=== PATIENT | male | born 1955 | race Caucasian/White ===

== ENCOUNTER 2018-12-07 13:19 | Emergency (ER) | payer BC, OTHER ==
[~2018-12-07] VITALS: Ht 167.6 cm; Wt 83.0 kg
[2018-12-07 13:23] VITALS: Ht 167.6 cm; Wt 83.0 kg
[2018-12-07 16:13] VITALS: BP 174/84; PULSE 75; RESP 18
--- NOTE | 2018-12-07 21:02 | ERD ---
ER Documentation Chief Complaint Chief Complaint BODY PAINS X 2 DAYS HPI 63yo male presents for body pain x2 days. He states that all his joints hurt. He rates the pain at 8/10 intermittently and states that he feels weak. He denies fever, chills, cough, CP, SOB, abd pain, nausea or vomiting. Patient was seen by PCP and was referred to ER for further workup. EKG was noted to be slightly abnormal. ROS All systems reviewed and are negative except as per history of present illness. Allergies Allergies: Coded Allergies: No Known Allergy (Unverified , 12/20/18) PMhx/Soc Medical and Surgical Hx: pt denies Medical Hx, pt denies Surgical Hx Hx Cardiac Disorders: Yes Hx Alcohol Use: No Hx Substance Use: No Hx Tobacco Use: Yes (6-7 cig qd) Smoking Status: Current every day smoker Physical Exam Vitals Vital Signs Date Temp Pulse Resp B/P (MAP) Pulse Ox O2 O2 Flow FiO2 Time Delivery Rate 12/07/18 97.5 75 18 174/84 98 Room Air 16:13 (114) 12/07/18 98.2 86 19 176/93 97 13:23 (120) Physical Exam Const: No acute distress Head: Atraumatic Eyes: Normal Conjunctiva ENT: Normal External Ears, Nose and Mouth. Neck: Full range of motion. No meningismus. Resp: Clear to auscultation bilaterally Cardio: Regular rate and rhythm, no murmurs, bilateral radial and dorsalis pedis pulses intact Abd: Soft, non tender, non distended. Normal bowel sounds Skin: No petechiae or rashes Back: No midline or flank tenderness Ext: No cyanosis, or edema, 5/5 muscle strength upper and lower extremities Neur: Awake and alert, sensation intact upper and lower extremities Psych: Normal Mood and Affect Results 24 hrs Laboratory Tests Test 12/07/18 14:53 White Blood Count 9.1 10^3/ul Red Blood Count 5.16 10^6/ul Hemoglobin 15.8 g/dl Hematocrit 49.4 % Mean Corpuscular Volume 95.7 fl Mean Corpuscular Hemoglobin 30.6 pg Mean Corpuscular Hemoglobin Concent 32.0 g/dl Red Cell Distribution Width 12.0 % Platelet Count 216 10^3/UL Mean Platelet Volume 10.7 fl Immature Granulocytes % 0.400 % Neutrophils % 61.7 % Lymphocytes % 25.7 % Monocytes % 6.2 % Eosinophils % 5.3 % Basophils % 0.7 % Nucleated Red Blood Cells % 0.0 /100WBC Immature Granulocytes # 0.040 10^3/ul Neutrophils # 5.6 10^3/ul Lymphocytes # 2.4 10^3/ul Monocytes # 0.6 10^3/ul Eosinophils # 0.5 10^3/ul Basophils # 0.1 10^3/ul Nucleated Red Blood Cells # 0.0 10^3/ul Sodium Level 143 mmol/L Potassium Level 4.4 mmol/L Chloride Level 106 mmol/L Carbon Dioxide Level 28 mmol/L Anion Gap 9 Blood Urea Nitrogen 21 mg/dl Creatinine 0.76 mg/dl Est Glomerular Filtrat Rate mL/min > 60 mL/min Glucose Level 101 mg/dl Calcium Level 9.6 mg/dl Total Bilirubin 0.3 mg/dl Direct Bilirubin 0.00 mg/dl Indirect Bilirubin 0.3 mg/dl Aspartate Amino Transf (AST/SGOT) 31 IU/L Alanine Aminotransferase (ALT/SGPT) 35 IU/L Alkaline Phosphatase 86 IU/L Total Protein 8.1 g/dl Albumin 4.8 g/dl Globulin 3.30 g/dl Albumin/Globulin Ratio 1.45 Procedures/MDM Medical Decision Making: Differential diagnosis includes but not limited to ACS, electrolyte disorder, dehydration. Patient appears well on physical exam. Patient had an EKG done with PCP which was noted subjectively to have slight ST abnormalities. Repeat EKG in ER showed NSR with no ST or T wave changes and patient did not c/o chest pain, low suspicion for ACS. patient was however advised to get cardiology referral via PCP for complete cardiac workup Vitals reviewed by me, showed elevated BP. Patient denied PMH of HTN. Patient was advised to follow up BP check with PCP. CBC did not show anemia or elevated WBC to suggest systemic infection CMP showed no electrolyte abnormalities, renal and liver function were normal. At this point, patient's body pain and subjective weakness is unexplained. Patient felt stable for outpatient workup. Patient advised to follow up with PCP in 1-2 days. Patient advised to return to ED for new or worsening symptoms. Patient stable on discharge from the ED. Disclaimer: Inadvertent spelling and grammatical errors are likely due to EHR/dictation software use and do not reflect on the overall quality of patient care. Also, please note that the electronic time recorded on this note does not ne Departure Diagnosis: Primary Impression: Generalized weakness Condition: Fair Patient Instructions: Generalized Weakness Referrals: [facility] YOU HAVE RECEIVED A MEDICAL SCREENING EXAM AND THE RESULTS INDICATE THAT YOU DO NOT HAVE A CONDITION THAT REQUIRES URGENT TREATMENT IN THE EMERGENCY DEPARTMENT. FURTHER EVALUATION AND TREATMENT OF YOUR CONDITION CAN WAIT UNTIL YOU ARE SEEN IN YOUR DOCTORS OFFICE WITHIN THE NEXT 1-2 DAYS. IT IS YOUR RESPONSIBILITY TO MAKE AN APPOINTMENT FOR FOLOW-UP CARE. IF YOU HAVE A PRIMARY DOCTOR --you should call your primary doctor and schedule an appointment IF YOU DO NOT HAVE A PRIMARY DOCTOR YOU CAN CALL OUR PHYSICIAN REFERRAL HOTLINE AT IF YOU CAN NOT AFFORD TO SEE A PHYSICIAN YOU CAN CHOSE FROM THE FOLLOWING [facility] [address] [facility]. [facility] [address] [facility] [facility] [address] [facility] [facility] [address] [facility]. [facility] [address] [facility]. [facility] [address] Additional Instructions: Call your primary care doctor TOMORROW for an appointment during the next 1-2 days.See the doctor sooner or return here if your condition worsens before your appointment time. JOB KULKARNI DO Dec 07, 2018 21:02
== END 2018-12-07 16:11 | disposition home or self-care (01) ==
LOC: FTE 13:19
DX: M62.81 Muscle weakness (generalized) (principal); F17.210 Nicotine dependence, cigarettes, uncomplicated
CPT/HCPCS: 80053; 85025; 93005; Z7502